=== PATIENT | male | born 1950 | race Hispanic/Latino ===

== ENCOUNTER → 2018-01-24 | Outpatient (CLI) | payer OTHER | LOC: RAH 13:47 | PROVIDERS: ATTEND Family Medicine | DX: N44.2 Benign cyst of testis (principal); N50.82 Scrotal pain | CPT/HCPCS: 76870 ==

== ENCOUNTER → 2019-11-24 | Outpatient (CLI) | payer OTHER | END | disposition home or self-care (01) | LOC: RAH 08:50 | PROVIDERS: ATTEND Family Medicine | DX: S30.9 Unspecified superficial injury of abdomen, lower back, pelvis and external genitals (principal); N44.2 Benign cyst of testis; N50.3 Cyst of epididymis; I51.7 Cardiomegaly; R01.1 Cardiac murmur, unspecified | CPT/HCPCS: 76870; 93306 ==

== ENCOUNTER 2020-07-24 04:20 | Emergency (ER) | payer OTHER | END 2020-07-24 05:15 | disposition home or self-care (01) | LOC: EDH 04:20 | DX: R33.9 Retention of urine, unspecified (principal); I10 Essential (primary) hypertension; Z88.0 Allergy status to penicillin | CPT/HCPCS: 36415; 51702; 80053; 81001; 85025; 87088 ==

== ENCOUNTER → 2020-09-15 | Outpatient (CLI) | payer OTHER | END | disposition home or self-care (01) | LOC: RAH 09:19 | PROVIDERS: ATTEND Internal Medicine | DX: R33.9 Retention of urine, unspecified (principal); N21.0 Calculus in bladder | CPT/HCPCS: 76770 ==

== ENCOUNTER → 2021-04-25 | Outpatient (CLI) | payer OTHER ==
[~2021-04-25] MED LIST: AMOX-429 PO; ASPI-1197 PO; LOSA50TA64 PO; TAMS-1 PO
== END | disposition home or self-care (01) ==
LOC: RAH 10:06
PROVIDERS: ATTEND Internal Medicine
DX: R01.1 Cardiac murmur, unspecified (principal)
CPT/HCPCS: 93306; 93356

== ENCOUNTER → 2022-05-01 | Outpatient (CLI) | payer OTHER | END | disposition home or self-care (01) | LOC: SHCH 14:43 | PROVIDERS: ATTEND Internal Medicine | DX: I35.1 Nonrheumatic aortic (valve) insufficiency (principal) | CPT/HCPCS: 93306 ==

== ENCOUNTER 2023-05-29 07:24 | Day surgery (SDC) | payer OTHER ==
[2023-05-27 14:07] LABS: HEMATOCRIT 39.9 % (42-54); MEAN CORPUSCULAR HEMOGLOBIN 29.2 pg (27.0-33.0); MEAN CORPUSCULAR HGB CONC 34.1 g/dL (32.0-36.0); MEAN CORPUSCULAR VOLUME 85.6 fL (79-99); PLATELET COUNT (AUTO) 152 K/uL (130-400); RED BLOOD CELL COUNT(AUTO) 4.66 MIL/uL (4.50-6.20); WHITE BLOOD COUNT (AUTO) 5.5 K/uL (4.8-10.8)
[2023-05-27 14:14] LABS: APPEARANCE,URINE CLOUDY (CLEAR); BILIRUBIN,URINE NEGATIVE (NEGATIVE); COLOR,URINE YELLOW (YELLOW); GLUCOSE, URINE (UA) NEGATIVE (NEGATIVE); KETONES,URINE NEGATIVE (NEGATIVE); LEUKOCYTE ESTERASE ,URINE 500 Leu/uL (NEGATIVE); NITRATE,URINE NEGATIVE (NEGATIVE); OCCULT BLOOD,URINE NEGATIVE (NEGATIVE); PROTEIN,URINE 10 mg/dL (NEGATIVE); UROBILINOGEN,URINE 0.2 mg/dL (0.2-1.0)
[2023-05-27 14:18] LABS: INR 0.93 (0.85-1.15); PROTHROMBIN TIME 10.5 SEC (9.6-11.6)
[2023-05-27 14:20] LABS: PARTIAL THROMBOPLASTIN TIME 27.9 SEC (26.3-35.5)
[2023-05-27 14:26] LABS: LYMPHOCYTES % (MANUAL) 39 % (22-44); MONOCYTES % (MANUAL) 10 % (2-9); REACTIVE LYMPHOCYTES 2 % (0-0); SEGMENTED NEUTROPHILS % 49 % (40-70)
[2023-05-27 14:27] LABS: MAN.DIFF COMMENT-IMPRESSION MANUAL DIFFERENTIAL; PLATELET MORPHOLOGY COMMENT ADEQUATE
[2023-05-27 14:28] LABS: MUCUS,URINE RARE LPF (None Seen); SQUAMOUS EPITHELIAL CELL,UR RARE /HPF (0-2); WBC,URINE TNTC /HPF (0-1)
[2023-05-27 14:30] LABS: B-TYPE NATRIURETIC PEPTIDE 129 pg/mL (0-100)
[2023-05-27 15:11] LABS: CREATININE 1.2 mg/dL (0.5-1.5); POTASSIUM 3.9 mmol/L (3.5-5.1)
[2023-05-28 14:39] VITALS: BP 179/87
[2023-05-29] VITALS (10 sets, daily range): BP systolic 112–187; BP diastolic 55–92
[~2023-05-29] VITALS: Ht 170.2 cm; Wt 72.5 kg
[~2023-05-29 07:24] MED LIST changes: -AMOX-429 PO; +CRAN400C PO; +LOSA100T59 PO; -LOSA50TA64 PO; +METO-408 PO
[2023-05-29] MEDS ORDERED: 0.9%NACL 1000ML 1,000 ML IV ONE ×2 (07:57→08:01)
[2023-05-29] MEDS ORDERED: LIDOCAINE HCL 400MG/20ML VIAL ONE (11:52)
[2023-05-29] MEDS ORDERED: FENTANYL CITRATE PF 50 MCG/1 ML 2ML VIAL ONE (11:52)
[2023-05-29] MEDS ORDERED: BIVALIRUDIN 250 MG/VIAL IV ONE (11:52)
[2023-05-29] MEDS ORDERED: MIDAZOLAM HCL 1 MG/ML 2ML VIAL ONE (11:52)
[2023-05-29] MEDS ORDERED: HEPARIN 10,000 UNIT/10ML (1,000 UNIT/ML) VIAL ONE (11:53)
[2023-05-29] MEDS ORDERED: NITROGLYCERIN 50MG VIAL ONE (11:53)
[2023-05-29] MEDS ORDERED: IOHEXOL-350 50ML VIAL IV ONE (11:56)
[2023-05-29] MEDS ORDERED: IOHEXOL 350 MG/ML 100ML INFUS..BTL IV ONE (11:56)
[2023-05-29] MEDS ORDERED: IOHEXOL-350 75 ML VIAL IV ONE ×2 (11:56→13:27)
[2023-05-29] MEDS ORDERED: HYDRALAZINE 20MG/ML VIAL ONE (13:31)
[2023-05-29] MEDS ORDERED: LABETALOL 20MG SYG IV ONE ×2 (13:36→13:44)
[2023-05-29] MEDS ORDERED: LABETALOL 20MG VIAL IV ONE (13:47)
[2023-05-29] MEDS ORDERED: ONDANSETRON 4MG INJ ONE ×2 (13:59→16:53)
[2023-05-29] MEDS ORDERED: 0.9%NACL 1000ML 1,000 ML IV SCH (14:00)
== END 2023-05-29 18:00 | disposition home or self-care (01) ==
LOC: DAH 07:24
PROVIDERS: ATTEND Internal Medicine Cardiovascular Disease
DX: I28.8 Other diseases of pulmonary vessels (principal); I25.10 Atherosclerotic heart disease of native coronary artery without angina pectoris; I10 Essential (primary) hypertension; I35.9 Nonrheumatic aortic valve disorder, unspecified; Z79.82 Long term (current) use of aspirin; Z79.899 Other long term (current) drug therapy; Z72.89 Other problems related to lifestyle; Z79.01 Long term (current) use of anticoagulants
CPT/HCPCS: 80048; 83880; 85025; 85610; 85730; 87088; 81001; 36415; 71045; 93005; 93460; 87077; 87186; 96360; 96361; C1894 ×3; C1760; J3010; J3490 ×3; J7030 ×2; J0360; J2405 ×2; J1644 ×2; Q9967 ×4; A4215; A4222; A4221; A4663; A4216; A4606; Q9965 ×2; A4223 ×3; 99156; 99157; J0583; J2250

== ENCOUNTER → 2023-06-11 | Outpatient (CLI) | payer OTHER | END | disposition home or self-care (01) | LOC: RAH 09:16 | PROVIDERS: ATTEND Internal Medicine Cardiovascular Disease | DX: M96.841 Postprocedural hematoma of a musculoskeletal structure following other procedure (principal); L76.32 Postprocedural hematoma of skin and subcutaneous tissue following other procedure; R10.813 Right lower quadrant abdominal tenderness; R10.31 Right lower quadrant pain; Q25.6 Stenosis of pulmonary artery; I25.10 Atherosclerotic heart disease of native coronary artery without angina pectoris; E78.5 Hyperlipidemia, unspecified; Z79.899 Other long term (current) drug therapy; Z79.82 Long term (current) use of aspirin | CPT/HCPCS: 76882 ==

== ENCOUNTER → 2023-07-26 | Outpatient (CLI) | payer OTHER ==
[2023-07-26 12:50] LABS: CHOLESTEROL 163 mg/dL (<200); HDL CHOLESTEROL 51 mg/dL (29-71); LDL DIRECT 89 mg/dL (0-99); TRIGLYCERIDES 167 mg/dL (30-200)
== END | disposition home or self-care (01) ==
LOC: LAB 08:24
PROVIDERS: ATTEND Internal Medicine Cardiovascular Disease
DX: E78.5 Hyperlipidemia, unspecified (principal)
CPT/HCPCS: 36415; 80061

== ENCOUNTER → 2023-08-13 | Outpatient (CLI) | payer OTHER ==
[2023-08-13 12:40] LABS: CREATININE 1.2 mg/dL (0.5-1.5); POTASSIUM 4.2 mmol/L (3.5-5.1)
== END | disposition home or self-care (01) ==
LOC: LAB 09:13
PROVIDERS: ATTEND Nurse Practitioner Acute Care
DX: I10 Essential (primary) hypertension (principal)
CPT/HCPCS: 36415; 80048

== ENCOUNTER → 2024-06-29 | Outpatient (CLI) | payer OTHER ==
[~2024-06-29] MED LIST changes: -CRAN400C PO; +CRANBERRY400 MG PO
[2024-06-29 22:03] VITALS: PULSE 54; RESP 12
[2024-06-29 22:38] VITALS: PULSE 58; RESP 14
[2024-06-29 23:15] VITALS: PULSE 55; RESP 12
[2024-06-29 23:35] VITALS: PULSE 55; RESP 12
[2024-06-30] VITALS (10 sets, daily range): PULSE 47–57; RESP 10–16
== END | disposition home or self-care (01) ==
LOC: SLP 20:37
PROVIDERS: ATTEND Internal Medicine
DX: G47.33 Obstructive sleep apnea (adult) (pediatric) (principal); R40.0 Somnolence
CPT/HCPCS: 95810

== ENCOUNTER → 2024-07-06 | Outpatient (CLI) | payer OTHER ==
[2024-07-06 21:29] VITALS: PULSE 52; RESP 12
[2024-07-06 22:19] VITALS: PULSE 47; RESP 15
[2024-07-06 23:01] VITALS: PULSE 48; RESP 13
[2024-07-06 23:11] VITALS: PULSE 47; RESP 15
[2024-07-06 23:33] VITALS: PULSE 48; RESP 15
[2024-07-06 23:52] VITALS: PULSE 45; RESP 13
[2024-07-07] VITALS (10 sets, daily range): PULSE 43–46; RESP 11–14
== END | disposition home or self-care (01) ==
LOC: SLP 20:27
PROVIDERS: ATTEND Internal Medicine
DX: G47.33 Obstructive sleep apnea (adult) (pediatric) (principal); R40.0 Somnolence
CPT/HCPCS: 95811